=== PATIENT | male | born 1990 | race Caucasian/White ===

== ENCOUNTER 2019-11-19 19:45 | Emergency (ER) | payer OTHER ==
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
[2019-11-19] MEDS ORDERED: ONDANSETRON 4 MG TAB.RAPDIS PO ONE (20:25)
[2019-11-19] MEDS ORDERED: HYDROCODONE/ACETAMINOPHEN 5-325 MG TABLET PO ONE (20:25)
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
[2019-11-19] MEDS ORDERED: HYDROCODONE/ACETAMINOPHEN 5-325 MG (6 TAB/ER DISP) PO PRN (21:05)
[2019-11-19 21:25] VITALS: BP 143/102
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
== END 2019-11-19 21:50 | disposition home or self-care (01) ==
LOC: ER 19:45
DX: S43.102A Unspecified dislocation of left acromioclavicular joint, initial encounter (principal); S60.221A Contusion of right hand, initial encounter; M25.512 Pain in left shoulder; M25.562 Pain in left knee; M79.641 Pain in right hand; V29.9XXA Motorcycle rider (driver) (passenger) injured in unspecified traffic accident, initial encounter; Z79.899 Other long term (current) drug therapy; F17.210 Nicotine dependence, cigarettes, uncomplicated
CPT/HCPCS: 99283; 73000; 73130; 73030; S0119